=== PATIENT | female | born 1995 | race Caucasian/White ===

== ENCOUNTER 2017-01-23 20:10 | Emergency (ER) | payer OTHER ==
[2017-01-23 20:38] VITALS: BP 124/87; PULSE 94; RESP 16; TEMP 97.5; O2SAT 100
[2017-01-23] MEDS ORDERED: TDAP VACCINE 0.5 ML SUS IM ONE (20:41)
[2017-01-23] MEDS: LIDOCAINE BUFFERED 1% 50 ML SOL SC ONE (20:45)
[2017-01-23] MEDS ORDERED: LIDOCAINE HCL 1% MPF SOL ONE (20:46)
[2017-01-23] MEDS ORDERED: BACITRACIN 500 U/GM OIN TOP ONE (20:56)
[2017-01-23] MEDS: TDAP VACCINE 0.5 ML SUS IM ONE (21:15)
[2017-01-23] MEDS: BACITRACIN 500 U/GM OIN TOP ONE (21:15)
== END 2017-01-23 21:20 | disposition home or self-care (01) ==
LOC: ED 20:10
DX: S61.213A Laceration without foreign body of left middle finger without damage to nail, initial encounter (principal); W25.XXXA Contact with sharp glass, initial encounter
CPT/HCPCS: 12001; 90715; 99284; J2001; 90471; A6402

== ENCOUNTER 2017-12-25 13:24 | Emergency (ER) | payer OTHER ==
[2017-12-25 13:24] VITALS: O2SAT 100
[2017-12-25 13:58] VITALS: RESP 16; TEMP 98
[2017-12-25 14:15] LABS: BASOPHILS % (AUTO) 1 % (0-3); EOSINOPHILS % (AUTO) 1 % (0-9); HEMATOCRIT 37 % (35-47); MEAN CORPUSCULAR HGB CONC 34.2 gm/dl (32.0-36.0); MEAN CORPUSCULAR VOLUME 84 fL (81-99); MONOCYTES % (AUTO) 7.5 % (0-12); NEUTROPHILS % (AUTO) 73.2 % (37-80)
[2017-12-25 14:28] LABS: ALBUMIN 3.7 gm/dl (3.4-5.0); CALCIUM 8.7 mg/dl (8.5-10.1); POTASSIUM 3.7 mMol/L (3.5-5.1)
[2017-12-25 14:42] LABS: APPEARANCE,URINE Clear; BILIRUBIN,URINE NEGATIVE (NEGATIVE); COLOR,URINE Yellow; GLUCOSE, URINE (UA) NEGATIVE (NEGATIVE); KETONES,URINE TRACE (NEGATIVE); LEUKOCYTE ESTERASE ,URINE NEGATIVE (NEGATIVE); NITRATE,URINE NEGATIVE (NEGATIVE); OCCULT BLOOD,URINE NEGATIVE (NEG-TRACE); PH,URINE 6.5
[2017-12-25 14:55] LABS: RBC,URINE 0-2 (0-3AV/HPF); WBC,URINE 0-2 (0-5AV/HPF)
[2017-12-25 15:14] VITALS: BP 118/74; PULSE 82
== END 2017-12-25 15:12 | disposition home or self-care (01) ==
LOC: ED 13:24
DX: O99.611 Diseases of the digestive system complicating pregnancy, first trimester (principal); Z3A.01 Less than 8 weeks gestation of pregnancy; K29.70 Gastritis, unspecified, without bleeding; M54.5 Low back pain
CPT/HCPCS: 36415; 80053; 81001; 84703; 85025; 99283; 99284

== ENCOUNTER 2018-08-22 01:50 | Inpatient (IN) | payer OTHER ==
[2018-08-22] MEDS ORDERED: FENTANYL 100MCG/2ML SOL IV PRN (02:50)
[2018-08-22] MEDS ORDERED: LACTATED RINGERS 1,000 ML IV PRN (02:50)
[2018-08-22] MEDS ORDERED: CARBOPROST 250 MCG/ML SOL IM PRN (02:50)
[2018-08-22] MEDS ORDERED: METHYLERGONOVINE MALEATE 0.2 MG/ML SOL IM PRN (02:50)
[2018-08-22] MEDS ORDERED: MEPIVACAINE HCL 1% MPF 30 ML/VIAL SOL INFIL PRN (02:50)
[2018-08-22] MEDS ORDERED: OXYTOCIN 10000 MU/ML SOL IM PRN (02:50)
[2018-08-22] MEDS: SODIUM CHLORIDE 0.9% FLUSH 10 ML SOL IV PRN (03:14)
[2018-08-22 03:31] LABS: BASOPHILS % (AUTO) 1 % (0-3); EOSINOPHILS % (AUTO) 2 % (0-9); HEMATOCRIT 36 % (35-47); HEMOGLOBIN 11.8 gm/dl (12.0-15.5); LYMPHOCYTES % (AUTO) 16.7 % (10-50); MEAN CORPUSCULAR HEMOGLOBIN 28.2 pg (27.0-32.0); MEAN CORPUSCULAR VOLUME 85 fL (81-99); MONOCYTES % (AUTO) 7.8 % (0-12); NEUTROPHILS % (AUTO) 73.2 % (37-80)
[2018-08-22] MEDS ORDERED: SODIUM CHLORIDE 0.9% 500 ML 500 ML IV ONE (03:44)
[2018-08-22] MEDS: SODIUM CHLORIDE 0.9% FLUSH 10 ML SOL IV SCH ×2 (03:56→15:52)
[2018-08-22] MEDS ORDERED: LACTATED RINGERS 1,000 ML IV SCH ×3 (04:45→18:00)
[2018-08-22] MEDS ORDERED: NALOXONE HYDROCHLORIDE 0.4 MG/ML SOL IV PRN (06:32)
[2018-08-22] MEDS ORDERED: NALBUPHINE HCL 20 MG/ML SOL IV PRN (06:32)
[2018-08-22] MEDS ORDERED: DIPHENHYDRAMINE 50 MG/ML SOL IV PRN (06:32)
[2018-08-22] MEDS ORDERED: EPHEDRINE SULFATE 50 MG/ML SOL IV PRN (06:32)
[2018-08-22] MEDS: LACTATED RINGERS 1,000 ML IV SCH ×5 (09:35→20:13)
[2018-08-22] MEDS ORDERED: LIDOCAINE HCL 2% MPF 10 ML SOL ONE ×3 (09:49→16:55)
[2018-08-22] MEDS ORDERED: FENTANYL 250 MCG/ 5ML SOL ONE (10:09)
[2018-08-22] MEDS ORDERED: ROPIVACAINE HYDROCHLORIDE 5 MG/ML SOL ONE (10:10)
[2018-08-22] MEDS ORDERED: CEFAZOLIN SODIUM 1 GM PDS IVP ONE (16:44)
[2018-08-22] MEDS ORDERED: CITRIC ACID/SODIUM CITRATE SOL PO ONE (16:44)
[2018-08-22] MEDS ORDERED: AZITHROMYCIN 500 MG PDS IV ONE (16:53)
[2018-08-22] MEDS ORDERED: PHENYLEPHRINE HYDROCHLORIDE 10 MG/ML SOL ONE (17:04)
[2018-08-22 17:07] LABS: APPEARANCE,URINE Cloudy; BILIRUBIN,URINE NEGATIVE (NEGATIVE); GLUCOSE, URINE (UA) NEGATIVE (NEGATIVE); KETONES,URINE 2+ (NEGATIVE); LEUKOCYTE ESTERASE ,URINE 2+ (NEGATIVE); NITRATE,URINE NEGATIVE (NEGATIVE); OCCULT BLOOD,URINE 3+ (NEG-TRACE); UROBILINOGEN,URINE 0.2 (0.2-1.0 EU)
[2018-08-22 17:20] LABS: COLOR,URINE PINK TINGED
[2018-08-22 17:21] LABS: BACTERIA TRACE (< 1+); CRYSTALS NEGATIVE (0-3 AVE/HPF); RBC,URINE TNTC (0-3AV/HPF)
[2018-08-22] MEDS ORDERED: FENTANYL 100MCG/2ML SOL ONE (17:21)
[2018-08-22] MEDS ORDERED: KETAMINE HYDROCHLORIDE 50 MG/ML SOL ONE (17:25)
[2018-08-22] MEDS ORDERED: LACTATED RINGERS 1,000 ML with OXYTOCIN 10000 MU/ML 20 MU IV ONE (17:25)
[2018-08-22] MEDS ORDERED: MORPHINE SULFATE 0.5 MG/ML SOL ONE (17:41)
[2018-08-22] MEDS ORDERED: SODIUM BICARBONATE 4.2% (PED) 0.5 MEQ/ML SOL IV ONE (17:42)
[2018-08-22] MEDS ORDERED: METHYLERGONOVINE MALEATE 0.2 MG TAB PO PRN ×2 (17:50→18:13)
[2018-08-22] MEDS ORDERED: BISACODYL 10 MG SUP PR PRN ×2 (17:50→18:13)
[2018-08-22] MEDS ORDERED: KETOROLAC TROMETHAMINE 30 MG/ML SOL IV PRN (17:50)
[2018-08-22] MEDS ORDERED: TEMAZEPAM 15MG 15 MG CAP PO PRN ×2 (17:50→18:13)
[2018-08-22] MEDS ORDERED: ONDANSETRON HCL 4 MG/2 ML SOL IV PRN ×2 (17:50→18:13)
[2018-08-22] MEDS ORDERED: APAP/HYDROCODONE 1 EACH TABLET PO PRN (17:50)
[2018-08-22] MEDS ORDERED: FLEET ENEMA PR PRN ×2 (17:50→18:13)
[2018-08-22] MEDS ORDERED: BENZOCAINE/MENTHOL 1 SPR TOP PRN ×2 (17:50→18:13)
[2018-08-22] MEDS ORDERED: DIPHENHYDRAMINE 25 MG CAP PO PRN ×2 (17:50→18:13)
[2018-08-22] MEDS ORDERED: WITCH HAZEL 1 EA PAD TOP PRN ×2 (17:50→18:13)
[2018-08-22] MEDS ORDERED: IBUPROFEN 600 MG TAB PO PRN (17:50)
[2018-08-22] MEDS ORDERED: KETOROLAC TROMETHAMINE 30 MG/ML SOL ONE (18:10)
[2018-08-22] MEDS: DOCUSATE SODIUM 100 MG SGL PO SCH (20:42)
[2018-08-22] MEDS: KETOROLAC TROMETHAMINE 30 MG/ML SOL IV PRN (20:42)
[2018-08-22] MEDS ORDERED: DOCUSATE SODIUM 100 MG SGL PO SCH (21:00)
[2018-08-22] MEDS ORDERED: CEFAZOLIN (PREMIX) 1 GM 1 GM/50 ML SOL IV SCH (22:44)
[2018-08-22] MEDS ORDERED: CEFAZOLIN SODIUM 1 GM PDS ONE (23:17)
[2018-08-23] MEDS: LACTATED RINGERS 1,000 ML IV SCH ×2 (02:20→13:08)
[2018-08-23] MEDS: KETOROLAC TROMETHAMINE 30 MG/ML SOL IV PRN (06:50)
[2018-08-23] MEDS: SODIUM CHLORIDE 0.9% FLUSH 10 ML SOL IV PRN (06:50)
[2018-08-23] MEDS: DOCUSATE SODIUM 100 MG SGL PO SCH ×2 (09:18→21:01)
[2018-08-23] MEDS: APAP/HYDROCODONE 1 EACH TABLET PO PRN ×4 (09:18→23:09)
[2018-08-23] MEDS: IBUPROFEN 600 MG TAB PO PRN (21:01)
[2018-08-24] MEDS: APAP/HYDROCODONE 1 EACH TABLET PO PRN ×4 (03:47→20:37)
[2018-08-24] MEDS: DOCUSATE SODIUM 100 MG SGL PO SCH ×2 (08:24→20:37)
[2018-08-24] MEDS: FERROUS GLUCONATE 324 MG TABLET PO SCH (15:08)
[2018-08-24] MEDS: IBUPROFEN 600 MG TAB PO PRN (15:08)
[2018-08-25] MEDS: APAP/HYDROCODONE 1 EACH TABLET PO PRN ×2 (07:53→11:59)
[2018-08-25] MEDS: DOCUSATE SODIUM 100 MG SGL PO SCH (07:59)
[2018-08-25] MEDS: FERROUS GLUCONATE 324 MG TABLET PO SCH (07:59)
[2018-08-25 11:10] VITALS: BP 118/71; PULSE 81; RESP 18; TEMP 98.5; O2SAT 97
== END 2018-08-25 12:30 | disposition home or self-care (01) | DRG 540 ==
LOC: OBSVTOIN 01:50 → OB 01:50
PROVIDERS: ADMIT Family Medicine; ATTEND Family Medicine
PROC: 10D00Z1 Extraction of Products of Conception, Low, Open Approach (ICD-10-PCS; principal; 2018-08-22 17:01)
DX: O64.8XX0 Obstructed labor due to other malposition and malpresentation, not applicable or unspecified (principal); Z3A.39 39 weeks gestation of pregnancy; Z37.0 Single live birth; O69.81X0 Labor and delivery complicated by cord around neck, without compression, not applicable or unspecified
CPT/HCPCS: 36415; 59025; 81001; 84112; 85018; 85025; 87088; 94762; 99070; J0456; J0670; J0690; J1885; J2274; J2590; J2795; J3010; A9270-GY; J2370; J3490

== ENCOUNTER 2019-03-09 10:27 | Emergency (ER) | payer OTHER ==
[2019-03-09] MEDS ORDERED: KETOROLAC TROMETHAMINE 30 MG/ML SOL IM ONE (10:55)
[2019-03-09] MEDS ORDERED: CYCLOBENZAPRINE 10 MG TAB PO ONE (10:56)
[2019-03-09 10:58] VITALS: TEMP 97.2
[2019-03-09] MEDS ORDERED: KETOROLAC TROMETHAMINE 30 MG/ML SOL ONE (11:04)
[2019-03-09] MEDS ORDERED: CYCLOBENZAPRINE 10 MG TAB ONE (11:04)
[2019-03-09] MEDS ORDERED: HYDROMORPHONE 1 MG/ML SYRINGE IV PRN (12:17)
[2019-03-09] MEDS ORDERED: HYDROMORPHONE 1 MG/ML SYRINGE ONE (12:31)
[2019-03-09 12:45] VITALS: PULSE 76; O2SAT 98
[2019-03-09 13:17] VITALS: BP 114/74; RESP 18
== END 2019-03-09 13:20 | disposition home or self-care (01) | DRG 552 ==
LOC: ED 10:27
DX: M54.9 Dorsalgia, unspecified (principal)
CPT/HCPCS: 72070; 72120; 96372; 96374; 99283; 99284; J1885; A9270-GY; J1170